=== PATIENT | male | born 1970 | race Caucasian/White ===

== ENCOUNTER 2024-06-10 13:31 | Inpatient (IN) ==
--- NOTE | 2024-06-10 13:53 | Emergency Department Note ---
Impression & Plan Supraventricular tachycardia, Chest pain, Elevated troponin level ED Provider Note NAME: AUREA HSU AGE: 53 SEX: M : 1970 ARRIVES VIA: Ambulance INFORMANT: Patient, ED PROVIDER(S): Ang Streeter MD CHIEF COMPLAINT: Chest tightness, palpitations MEDICAL DECISION MAKING: Patient presents due to concern for chest tightness. IV was established and blood work was obtained. Patient does have a white count of 14 but denies any infectious symptoms. Patient has a normal H&H and platelet count. The patient's kidney function is unremarkable. Patient was noted to have a troponin of 141. Patient does not have any acute ischemic changes to suggest a STEMI at this time. Patient still does have some mild chest discomfort. He did already see 4 baby aspirin prior to arrival. I did speak with the on-call hospitalist service. I do believe that the likely cause of the patient's elevated troponin is secondary to a prolonged course of the patient being in SVT. The patient states that he began having palpitations around 4 to 5 PM yesterday and likely did not have them resolved until ambulance transport this afternoon. If his rates were that high for that long of a time would be a reasonable cause for his symptoms; however, patient will be admitted to trend his enzymes and further evaluate his chest pain. I did speak with the on-call hospitalist service Carlie Kathleen PA-C and the patient was admitted by Dr. Gilbert. Discussion w/ other healthcare providers: Samri Kathleen PA-C and Dr. Gilbert Prior /Outside records reviewed: None Differential diagnosis: Cardiac ischemia, aortic dissection, pulmonary embolism, pneumothorax, pneumonia, pericarditis, myocarditis, GERD, cholecystitis, pancreatitis, musculoskeletal, as well as other pathologies were considered. Diagnostics, as interpreted by me: ECG: Normal sinus rhythm, rate 96, normal intervals, left axis deviation no ST elevations. Incomplete right bundle branch block pattern. Cardiac monitoring: An order was placed for continuous cardiac monitoring. The monitor shows a rate of 95 with sinus rhythm. Patient was placed on pulse oximetry Medical decision rules: None Imaging studies: I informally interpreted the patient's chest x-ray does not show obvious pneumonia or pneumothorax with formal report to follow. HPI: Patient presents due to concern for chest tightness and palpitations. Patient was seen at [facility] and was noted to be SVT was taken from there to here via ambulance and did receive adenosine. Patient states that he does feel improved. He was given aspirin at the urgent care but no nitro. No prior history of heart or lung disease. The patient states that his chest discomfort does feel improved after receiving the adenosine medication. Patient still has some of the chest tightness but noticed that it seemed to be worse last evening and this morning with associated palpitations. He did have some lightheadedness and dizziness after dinner at which time he did take his blood pressure medication and noticed that his heart rate to be elevated. Patient denies any supplements or stimulants. No caffeine use. Patient denies any alcohol tobacco or drug use. No known heart or lung history. Patient is a non-smoker. No leg swelling or calf pain no history of DVT or PE. No recent surgeries procedures or hospitalizations and no recent prolonged car plane travel. Patient denies any cough. Patient also did receive IV fluids. Patient may have received total of 700 cc prior to arrival. Patient denies any exertional chest pain nausea vomiting or diaphoresis. PAST MEDICAL HISTORY: See Below PAST SURGICAL HISTORY: See Below SOCIAL HISTORY: See Below HOME MEDICATIONS: See Below ALLERGIES: See Below VITALS: See Below PHYSICAL EXAMINATION: GENERAL: NAD, non-toxic. EYE EXAM: Normal conjunctiva. PERRL, no anisocoria and EOM's grossly intact w/o pain. OROPHARYNX: Moist mucus membranes, grossly normal dentition. NECK: Trachea midline, no stridor. Supple, no nuchal rigidity, no adenopathy, non-tender. No signs of meningismus. FROM of the neck with good chin to chest and neck extension. LUNGS: Clear to auscultation. Normal chest wall mechanics. HEART: NSR, no MRG. ABDOMEN: Abdomen soft, non-tender, no masses, no rebound or guarding. BACK: No CVA TTP. SKIN: No rashes and no bruising. UPPER EXTREMITIES: Upper extremities are grossly normal. LOWER EXTREMITIES: Grossly normal, no edema. NEURO EXAM: A&O x3, cranial nerves II-XII grossly intact, normal speech, moves all 4 extremities. Past Med/Surg History Problem List (Updated 06/10/24 @ 17:21 by Ang Streeter MD) Elevated troponin level (Acute) Chest pain (Acute) Supraventricular tachycardia (Acute) Medical History ZARIA (generalized anxiety disorder) History of sinus tachycardia Metabolic syndrome Prediabetes HTN (hypertension) Social History Smoking Status: Never smoker Preferred Language: Japanese Feels Safe at Home: Yes Home Meds Home Medications Medication Instructions Recorded Confirmed amoxicillin 875 mg-potassium 1 tab PO BID 06/10/24 06/10/24 clavulanate 125 mg tablet fluticasone propionate 50 1 spray intranasal DAILY 06/10/24 06/10/24 mcg/actuation nasal spray,suspension losartan 100 mg tablet 100 mg PO QAM 06/10/24 06/10/24 prednisone 20 mg tablet 20 mg PO DAILY 06/10/24 06/10/24 Results & Data (ED) Vital Signs Vital Signs - 24 hr 06/10/24 13:39 06/10/24 13:53 06/10/24 13:53 Temperature 36.8 C Temperature Source Oral Pulse Rate 96 H 98 H Pulse Rate [Apical] 93 H Pulse Rhythm Regular Pulse Rhythm [Apical] Regular Pulse Strength [Apical] Normal Respiratory Rate 24 16 16 Respiratory Effort / Characteristics Non-Labored Spontaneous Respiratory Depth Normal Blood Pressure 127/78 Blood Pressure [Right Arm] 115/72 Blood Pressure Mean 94 Blood Pressure Mean [Right Arm] 86 Blood Pressure Position [Right Arm] Semi-fowlers Pulse Oximetry 100 99 99 Oxygen Delivery Method Room Air Room Air Room Air Sepsis Recent Fever Within 48 Hours No Sepsis New/Unexplained Change in Mental Status No Sepsis Action Taken by Nursing No Action Required 06/10/24 14:26 06/10/24 15:06 Temperature Temperature Source Pulse Rate 98 H 88 Pulse Rate [Apical] Pulse Rhythm Pulse Rhythm [Apical] Pulse Strength [Apical] Respiratory Rate 12 Respiratory Effort / Characteristics Respiratory Depth Blood Pressure 99/80 L Blood Pressure [Right Arm] Blood Pressure Mean 86 Blood Pressure Mean [Right Arm] Blood Pressure Position [Right Arm] Pulse Oximetry 100 Oxygen Delivery Method Sepsis Recent Fever Within 48 Hours Sepsis New/Unexplained Change in Mental Status Sepsis Action Taken by Intermediate Medications Current Medication List: was personally reviewed by me Laboratory Data Attestation: I reviewed the patient's lab results. 06/10/24 13:40 06/10/24 13:40 Lab Results 07/25/24 07/25/24 07/25/24 Range/Units 13:40 14:00 16:04 WBC 14.09 H (4.8-10.8) K/ul RBC 4.90 (4.70-6.10) M/uL Hgb 14.8 (14.0-18.0) g/dl Hct 43.6 (42.0-52.0) % MCV 89.0 (80.0-100.0) fL MCH 30.2 (25.0-34.0) pg MCHC 33.9 (32.0-36.0) g/dL RDW Std Deviation 41.3 (36.4-46.3) fL RDW Coeff of Ebrtha 12.7 (11.5-14.5) % Plt Count 304 (130-400) K/uL MPV 9.7 (9.4-12.4) fL Immature Gran % (Auto) 0.6 % Neut % (Auto) 68.4 % Lymph % (Auto) 20.5 % [place] % (Auto) 8.2 % Eos % (Auto) 1.9 % Baso % (Auto) 0.4 % Neut # (Auto) 9.64 H (1.40-6.50) K/uL Lymph # (Auto) 2.89 (1.20-3.40) K/uL [place] # (Auto) 1.16 H (0.11-0.59) K/uL Eos # (Auto) 0.27 (0.00-0.50) K/uL Baso # (Auto) 0.05 (0.00-0.20) K/uL Immature Gran # (Auto) 0.08 (0.01-0.20) K/uL PT 10.6 (9.0-12.0) Seconds INR 1.0 (0.9-1.1) APTT 24 (21-31) Seconds PTT Ratio 0.9 Sodium 139 (136-145) mmol/L Potassium 3.8 (3.5-5.1) mmol/L Chloride 106 (98-107) mmol/L Carbon Dioxide 26 (21-32) mmol/L Anion Gap 7 (3-11) BUN 27 H (6-23) mg/dl Creatinine 1.18 (0.6-1.4) mg/dl Est Cr Clr Drug Dosing 92.7 ml/min Est GFR ( Amer) 81.7 ml/min Est GFR (Non-Af Amer) 70.5 ml/min BUN/Creatinine Ratio 22.9 H (10-20) Glucose 107 H (70-99(Fasting)) mg/dl Calcium 9.1 (8.6-10.3) mg/dl Magnesium 2.0 (1.7-2.4) mg/dl Total Bilirubin 1.0 (0.2-1.0) mg/dl AST 29 (13-39) U/L ALT 55 H (7-52) U/L Alkaline Phosphatase 75 (34-104) U/L Troponin I High Sens 141.9 H* 152.2 H* (0-20) pg/ml Total Protein 6.9 (6.0-8.3) gm/dl Albumin 4.1 (3.4-5.0) gm/dl Globulin 2.8 (2.5-4.0) gm/dl Albumin/Globulin Ratio 1.5 (0.9-2) Lipase 33 (11-82) U/L TSH 2.749 (0.300-4.500) uIu/ml SARS-CoV-2, RNA, NAAT NEGATIVE (NEGATIVE) Imaging Data Radiologist's Impression: Chest X-Ray 06/10/24 13:48 XR chest 1V portable CLINICAL HISTORY: Chest pain, nonspecific TECHNIQUE: Single frontal radiograph of the chest was obtained. Comparison: None available at the time of this dictation. FINDINGS: Exam is limited by underpenetration. The cardiomediastinal silhouette is normal. The lungs are clear. No evidence of pleural effusion or pneumothorax. IMPRESSION: No acute chest disease. ACT 112: Negative or not required by law. Electronically signed by: Ty Curran M.D. 06/10/2024 2:10 PM Discharge Plan Visit Data Chief Complaint: Chest Pain Stated Complaint: TACHYCARDIA, SOB, CHEST PAIN ED Provider: Ang Streeter Discharge Problem: Supraventricular tachycardia, Chest pain, Elevated troponin level Forms Stand Alone Forms: My [facility] Prescriptions Prescriptions: No Action prednisone 20 mg tablet 20 mg PO DAILY Rx Instructions: Two pills daily with food for 5 days, then 1 daily with food. Patient was on his last dose today. losartan 100 mg tablet 100 mg PO QAM fluticasone propionate 50 mcg/actuation spray,suspension 1 spray INTRANASAL DAILY amoxicillin-pot clavulanate 875-125 mg tablet 1 tab PO BID Rx Instructions: Patient was on his last day (06/10). Referrals Referrals: PCP,NO [Physician] - Discharge Problem: Chest pain Qualifiers: Chest pain type: unspecified Qualified Code(s): R07.9 - Chest pain, unspecified
[2024-06-10 14:10] LABS: Basophils # (auto) 0.05 K/uL (0.00-0.20); Basophils % (auto) 0.4 %; Eosinophils # (auto) 0.27 K/uL (0.00-0.50); Eosinophils % (auto) 1.9 %; Hematocrit (blood only) 43.6 % (42.0-52.0); Hemoglobin 14.8 g/dl (14.0-18.0); Immature Granulocytes # (auto) 0.08 K/uL (0.01-0.20); Immature Granulocytes % (auto) 0.6 %; Lymphocytes # (auto) 2.89 K/uL (1.20-3.40); Lymphocytes % (auto) 20.5 %; Mean Corpuscular Hemoglobin 30.2 pg (25.0-34.0); Mean Corpuscular Hgb Conc 33.9 g/dL (32.0-36.0); Mean Platelet Volume 9.7 fL (9.4-12.4); Monocytes # (auto) 1.16 K/uL (0.11-0.59); Monocytes % (auto) 8.2 %; Neutrophils # (auto) 9.64 K/uL (1.40-6.50); Neutrophils % (auto) 68.4 %; Platelet Count 304 K/uL (130-400); RDW Coefficient of Variation 12.7 % (11.5-14.5); RDW Standard Deviation 41.3 fL (36.4-46.3); White Blood Count 14.09 K/ul (4.8-10.8)
--- NOTE | 2024-06-10 14:12 | XRay Report ---
XR chest 1V portable CLINICAL HISTORY: Chest pain, nonspecific TECHNIQUE: Single frontal radiograph of the chest was obtained. Comparison: None available at the time of this dictation. FINDINGS: Exam is limited by underpenetration. The cardiomediastinal silhouette is normal. The lungs are clear. No evidence of pleural effusion or pneumothorax. IMPRESSION: No acute chest disease. ACT 112: Negative or not required by law. Electronically signed by: Ty Curran M.D. 06/10/2024 2:10 PM
[2024-06-10 14:35] LABS: Partial Thromboplastin Ratio 0.9; Partial Thromboplastin Time 24 Seconds (21-31); Prothrombin Time 10.6 Seconds (9.0-12.0)
[2024-06-10 14:39] LABS: Albumin Globulin Ratio 1.5 (0.9-2); Albumin Level 4.1 gm/dl (3.4-5.0); BUN Creatinine Ratio 22.9 (10-20); Calcium 9.1 mg/dl (8.6-10.3); Creatinine Clr Calc Pharmacy 92.7 ml/min; Est GFR (African American) 81.7 ml/min; Est GFR (Non-African American) 70.5 ml/min; Globulin 2.8 gm/dl (2.5-4.0); Potassium 3.8 mmol/L (3.5-5.1); Total Protein 6.9 gm/dl (6.0-8.3)
[2024-06-10 14:44] LABS: Troponin I High Sensitivity 141.9 pg/ml (0-20)
[2024-06-10 14:50] LABS: Thyroid Stimulating Hormone 2.749 uIu/ml (0.300-4.500)
--- NOTE | 2024-06-10 15:48 | History & Physical Report ---
Date of Service June 10, 2024 History of Present Illness Chief Complaint: CP, palpitations Primary Care Provider: Katelyn Yan MD This is a 53-year-old male with PMH of metabolic syndrome, prediabetes, hypertension, sinus tachycardia, history of generalized anxiety disorder and other medical problems listed below who presents with chest pain and palpitations. Was seen at [facility] earlier today and noted to be in SVT. Was brought by ambulance to our ED and adenosine was given en route. Was given aspirin at the urgent care as well. Denies any history of known heart or lung disease. Does have history of sinus tachycardia per chart review. Past Med/Surg History Problem List Social History Smoking Status: Never smoker Preferred Language: Estonian Feels Safe at Home: Yes Results & Data Results & Data Vital Signs (Past 12 Hours) Vital Signs Temp Pulse Pulse Resp BP BP Pulse Ox 06/10/24 15:06 88 12 99/80 L 100 06/10/24 14:26 98 H 06/10/24 13:53 98 H 16 99 06/10/24 13:53 93 H 16 115/72 99 06/10/24 13:39 36.8 C 96 H 24 127/78 100 O2 Del Method 06/10/24 15:06 06/10/24 14:26 06/10/24 13:53 Room Air 06/10/24 13:53 Room Air 06/10/24 13:39 Room Air Supervising Physician Co-Signing Physician Notes I have seen and discussed the case with the collaborating advanced practitioner. I agree with the above H&P. I have reviewed and confirmed the patients medical history, the findings on physical examination, and the patients diagnosis and treatment plan with Hever LIEBERMAN and agree with the information documented. 53-year-old male with PMH of metabolic syndrome, prediabetes, hypertension, sinus tachycardia, history of generalized anxiety disorder and other medical problems listed below who presents with chest pain and palpitations Acute non-recurrent frontal sinusitis (Primary) - Amoxicillin-Pot Clavulanate 875-125 MG Oral Tablet (Augmentin); Take 1 Tablet by mouth in the morning and 1 Tablet before bedtime. Do all this for 10 days. - predniSONE 20 MG Oral Tablet (Deltasone); two pills daily with food for 5 days, then one daily with food HTN, goal below 140/90 - Losartan Potassium 100 MG Oral Tablet (Cozaar); Take 1 Tablet by mouth in the morning. Metabolic syndrome - HEMOGLOBIN A1C; Future; Expected date: 05/31/2024 I spent a total of minutes coordinating, documenting, and providing care for this patient excluding time spent in the performance of separately billed services. All of the aforementioned completed outside of collaborating with the assigned advanced practitioner for a full treatment plan. I have reviewed the advanced practitioner's documentation, and I agree with, and take responsibility for the plan of care
--- NOTE | 2024-06-10 15:59 | Electrocardiogram Report ---
Test Reason : Blood Pressure : / mmHG Vent. Rate : 096 BPM Atrial Rate : 096 BPM P-R Int : 174 ms QRS Dur : 094 ms QT Int : 342 ms P-R-T Axes : 058 258 030 degrees QTc Int : 432 ms Normal sinus rhythm Right superior axis deviation Incomplete right bundle branch block Right ventricular hypertrophy Abnormal ECG No previous ECGs available Confirmed by Michael Ma ([id number]) on 06/10/2024 3:59:31 PM Referred By: Confirmed By:Michael Ma
--- NOTE | 2024-06-10 16:03 | History & Physical Report ---
Date of Service June 10, 2024 Assessment & Plan (1) Chest pain: (2) Elevated troponin level: (3) Supraventricular tachycardia: Plan Austin Patel is a 53y/o M with PMHx of metabolic syndrome, prediabetes, hypertension, sinus tachycardia, history of generalized anxiety disorder and other medical problems listed below who presents with chest pain and palpitations. Patient was seen at [facility] and was noted to be SVT. He was taken from there to here via ambulance and received adenosine en route. He was given aspirin at the urgent care but no nitroglycerin. Patient also received approximately 700mL of NSS en route to the ED. Chest Pain, Palpitations Elevated Troponin Level Supraventricular Tachycardia Administered adenosine en route to ED. Presenting EKG w/ no acute ischemic changes. Initial trop 141.9 upon presentation; Repeat trop 152.2 @ 16:04 - Continue to trend. Echo ordered and pending - follow results. HR still in upper 90s-100s at time of admission; Initiating po metoprolol tartrate 12.5 Q6H. EKG w/ chest pain PRN, daily EKG in AM x 2. Continuous cardiac + pulse ox monitoring. Cardiology consulted, appreciate their input/recs. UA pending - follow results. CBC, CMP and fasting lipid panel in AM - follow results. HTN Pt on losartan 100mg daily [employer]; Holding losartan for now 2/2 presenting hypotension. Seasonal Allergies Pt taking Augmentin and prednisone [employer] for acute sinusitis; Stopping both medications on admission 2/2 improved symptoms. No overt evidence of infection on physical exam. Daily Alcohol Use Tobacco Use Disorder Pt reports drinking ~2 beers after dinner every evening; He also uses chewing tobacco daily. Alcohol w/d at-risk protocol in place; Denies need for nicotine patch at this time. JAXON on CPAP: Ordered, can continue using CPAP HS. Prediabetes: Hgb A1c in AM - follow results. DVT Prophylaxis: SQ Lovenox Code Status: FULL CODE PCP: Katelyn Yan MD Disposition: Admit to Med/Tele Patient seen in collaboration with Dr. Gilbert. Please see addendum. I spent a total of 50 minutes coordinating, documenting, and providing care for this patient excluding time spent in the performance of separately billed services. This included personally reviewing all current laboratories and imaging studies, medical reconciliation, outpatient chart review and discussion with specialists. This chart was completed in part utilizing Speech Voice Recognition Software. Grammatical errors, random word insertions, pronoun errors, and incomplete sentences are an occasional consequence of this system due to software limitations, ambient noise, and hardware issues. Any formal questions or concerns about the content, text, or information contained within the body of this dictation should be directly addressed to the provider for clarification. History of Present Illness Chief Complaint: Chest Pain, Palpitations Primary Care Provider: Katelyn Yan MD Austin Patel is a 53y/o M with PMHx of metabolic syndrome, prediabetes, hypertension, sinus tachycardia, history of generalized anxiety disorder and other medical problems listed below who presents with chest pain and palpitations. Was seen at [facility] earlier today and noted to be in SVT. Was brought by ambulance to our ED and adenosine was given en route. Was given aspirin at the urgent care as well, but no nitro. Patient states that his chest discomfort does feel improved. Patient started with chest tightness, palpitations and lightheadedness/dizziness yesterday around dinner time. He reports that he took his BP at home and noted that his HR was elevated. Denies any history of known heart or lung disease. Does have history of sinus tachycardia per chart review. He has been taking Augmentin and prednisone over the past week or so for an acute sinus infection. No family history of heart disease. He did not take his losartan this morning - he usually takes this medication in the afternoon. Patient also received 700mL of NSS en route. He does not smoke, but does endorse using chewing tobacco. No recreational drug use. He drinks approximately 2 beers after dinner every evening. He denies any SOB, abdominal pain, leg swelling or cough. Home Medications Medication Instructions Recorded Confirmed Type amoxicillin 875 mg-potassium 1 tab PO BID 06/10/24 06/10/24 History clavulanate 125 mg tablet fluticasone propionate 50 1 spray intranasal DAILY 06/10/24 06/10/24 History mcg/actuation nasal spray,suspension losartan 100 mg tablet 100 mg PO QAM 06/10/24 06/10/24 History prednisone 20 mg tablet 20 mg PO DAILY 06/10/24 06/10/24 History Past Med/Surg History Problem List (Updated 06/10/24 @ 17:21 by Ang Streeter MD) Elevated troponin level (Acute) Chest pain (Acute) Supraventricular tachycardia (Acute) Medical History ZARIA (generalized anxiety disorder) History of sinus tachycardia Metabolic syndrome Prediabetes HTN (hypertension) Social History Smoking Status: Never smoker Preferred Language: Slovenian Feels Safe at Home: Yes Review of Systems Review of Systems: At least ten systems reviewed and negative, except as noted in the HPI. Physical Exam Physical Exam: Please refer to Dr. Barfield's addendum for physical examination findings. Results & Data Results & Data Vital Signs (Past 12 Hours) Vital Signs Temp Pulse Pulse Resp BP BP Pulse Ox 06/10/24 15:06 88 12 99/80 L 100 06/10/24 14:26 98 H 06/10/24 13:53 98 H 16 99 06/10/24 13:53 93 H 16 115/72 99 06/10/24 13:39 36.8 C 96 H 24 127/78 100 O2 Del Method 06/10/24 15:06 06/10/24 14:26 06/10/24 13:53 Room Air 06/10/24 13:53 Room Air 06/10/24 13:39 Room Air Laboratory Results Short CBC 06/10/24 Range/Units 13:40 WBC 14.09 H (4.8-10.8) K/ul Hgb 14.8 (14.0-18.0) g/dl Hct 43.6 (42.0-52.0) % Plt Count 304 (130-400) K/uL BMP 06/10/24 13:40 Sodium 139 Potassium 3.8 Chloride 106 Carbon Dioxide 26 BUN 27 H Creatinine 1.18 Glucose 107 H Calcium 9.1 Liver Function 06/10/24 Range/Units 13:40 Total Bilirubin 1.0 (0.2-1.0) mg/dl AST 29 (13-39) U/L ALT 55 H (7-52) U/L Alkaline Phosphatase 75 (34-104) U/L Albumin 4.1 (3.4-5.0) gm/dl Diagnostic Findings Chest X-Ray 06/10/24 13:48 XR chest 1V portable CLINICAL HISTORY: Chest pain, nonspecific TECHNIQUE: Single frontal radiograph of the chest was obtained. Comparison: None available at the time of this dictation. FINDINGS: Exam is limited by underpenetration. The cardiomediastinal silhouette is normal. The lungs are clear. No evidence of pleural effusion or pneumothorax. IMPRESSION: No acute chest disease. ACT 112: Negative or not required by law. Electronically signed by: Ty Curran M.D. 06/10/2024 2:10 PM Code Status & VTE Plan Code Status FULL CODE Supervising Physician Co-Signing Physician Notes I have seen and discussed the case with the collaborating advanced practitioner. I agree with the above H&P. I have reviewed and confirmed the patients medical history, the findings on physical examination, and the patients diagnosis and treatment plan with Hever LIEBERMAN and agree with the information documented. 53-year-old male with PMH of metabolic syndrome, prediabetes, hypertension, sinus tachycardia, history of generalized anxiety disorder and other medical problems listed below who presents with chest pain and palpitations. Patient reports history of intermittent palpitations, but notes that after taking a course of prednisone and augmentin for a sinusitis, he felt the palpitations set in worse finally bringing him to urgent care. Patient reports low blood pressures and elevated heart rates 190s. Patient s/p adenosine in route GENERAL APPEARANCE: AxOx4, generally well-appearing F no acute distress. HEENT: NC, AT. MMM. EOMI, clear conjunctiva, oropharynx clear. NECK: Supple without lymphadenopathy. No stiffness or restricted ROM. HEART: tachycardic and regular LUNGS: CTAB, moving air well. No crackles or wheezes are heard. ABDOMEN: Soft, nontender, nondistended with good bowel sounds heard. BACK: No CVAT, no obvious deformity. EXTREMITIES: Without cyanosis, clubbing or edema. NEUROLOGICAL: Grossly nonfocal. Alert and oriented, moving all 4 extremities. CN not formally tested but appear grossly intact. Observed to ambulate with normal gait. Skin: Warm and dry without any rash. #SVT s/p adenosine #Sinus tachycardia TSH wnl, UA ordered rates in 90-100s, starts metoprolol 12.5mg q6h monitor on tele Cards consult ECHO lipid panel and a1c #Allergic rhinitis start flonase and claritin rest of plan as above I spent a total of 35 minutes coordinating, documenting, and providing care for this patient excluding time spent in the performance of separately billed services. All of the aforementioned completed outside of collaborating with the assigned advanced practitioner for a full treatment plan. I have reviewed the advanced practitioner's documentation, and I agree with, and take responsibility for the plan of care (1) Chest pain Chest pain type: unspecified Qualified Code(s): R07.9 - Chest pain, unspecified
[2024-06-10] MEDS: Patient's ALLERGY Info needs ENTERED STA (17:57)
[2024-06-10] MEDS ORDERED: ONDANSETRON INJ 2 MG/ML 2 ML VIAL IV PRN (18:57)
[2024-06-10] MEDS ORDERED: ACETAMINOPHEN 325 MG TAB PO PRN (18:57)
[2024-06-10] MEDS ORDERED: POLYETHYLENE (MIRALAX) 17 GM PACK PO PRN (18:57)
[2024-06-10] MEDS ORDERED: LORazepam 1 MG in SYRINGE 0.5 ML IV PRN (18:57)
[2024-06-10] MEDS: METOPROLOL TARTRATE 1 MG/ML VIAL IV STA (19:29)
[2024-06-10] MEDS: METOPROLOL TARTRATE 25 MG TAB PO SCH (20:46)
[2024-06-10] MEDS: ENOXAPARIN INJ 40 MG/0.4 ML SYR SQ SCH (20:47)
[2024-06-10] MEDS: NICOTINE 21 MG/24 HR TDSY TD SCH (21:36)
[2024-06-10 21:51] LABS: Appearance Urine Clear (Clear); Bilirubin Urine Negative (Negative); Blood Urine Negative (Negative); Color Urine Yellow; Glucose Urine UA 1+ (Negative); Ketones Urine Negative (Negative); Leukocyte Esterase Urine Negative (Negative); Nitrite Urine Negative (Negative); Protein Urine Negative (Negative); Specific Gravity Urine 1.011 (1.000-1.030); Urobilinogen Urine Negative (Negative)
--- OUTSIDE RECORDS SUMMARY | 2024-06-11 00:13 | External Medical Summary | Summary of Care ---
Author Name Unknown Organization [facility] Address [address] [facility] [place] [address] Phone [phone] Care Team Providers Care Shop Firer/Fireman Name Role Phone Unavailable Primary Care Provider Unavailabl e Reason for Visit * Reason Comments eRx-Medication Refill Encounter Details Date Type Department Care Team (Late st Contact Info) Description 04/13/2024 Refill Family Medicine [address] [place] [phone] Sophie Hawknis PA-C [address] [place] [address] [place] [address] HTN, goal below 140/90 Allergies No known active allergiesdocumented as of this encounter (statuses as of 06/02/2024) Medications Medication Sig Dispensed Refills Start Date End Date Status Aspirin EC 81 MG Oral Tablet Delayed Release Take by mouth 1 Tablet in the morning. 02/04/2022 Active Fluticasone Propionate 50 MCG/ACT Nasal Suspension (Flonase)Indica tions:Dysfuncti on of both eustachian tubes Administer into each nostril 2 Sprays in the morning. 16 g 4 01/21/2022 4 Discontinued(Med ication List Clean Up) Losartan Potassium 100 MG Oral Tablet (Cozaar)Indicat ions:HTN, goal below 140/90 Take 1 Tablet by mouth in the morning. 30 Tablet 5 11/06/2023 4 Discontinued Losartan Potassium 100 MG Oral Tablet (Cozaar)Indicat ions:HTN, goal below 140/90 Take 1 Tablet by mouth in the morning. 30 Tablet 04/15/2024 4 Discontinued(Ref ill) documented as of this encounter (statuses as of 06/02/2024) Active Problems Problem Noted Date Diagnosed Date Prediabetes 05/24/2024 Overview: Per Prediabetes protocol Metabolic syndrome 05/19/2024 Overview: 6.0/126 HTN, goal below 140/90 04/23/2022 Sinus tachycardia 04/23/2022 ADVANCE DIRECTIVE INFORMATION 02/20/2006 Overview: No, Advance Directive brochure offered , patient declined. GENERALIZED ANXIETY DIS 09/08/2003 documented as of this encounter (statuses as of 06/02/2024) Resolved Problems Problem Noted Date Diagnosed Date Resolved Date BENIGN THALIA SKIN EAR 10/12/2003 02/08/20 14 documented as of this encounter (statuses as of 06/02/2024) Immunizations Name Administration Dates Next Due Pneumococcal Polysaccharide PPV23 (Pneumovax) 10/17/2012 Seasonal Influenza, Quadriva lent, No Preserve, IM 10/17/2016 Seasonal Influenza, Split, I IV3, With Preserve, Inj 08/12/2014,11/01/2013,10/17/2012 TDAP, Age 7 and older, IM (Adacel) 06/09/2019, documented as of this encounter Social History Tobacco Use Types Packs/Day Years Used Date Smoking Tobacco: Former Cigarettes Smokeless Tobacco: Current Snuff Comments:quit smoking, chews snuff Alcohol Use Standard Drinks/Week Comments Yes 0 (1 standard drink = 0.6 oz pur e alcohol) on weekends Sex and Gender Information Value Date Recorded Sex Assigned at Not on file Gender Identity Not on file Sexual Orientation Not on file Job Start Date Occupation Industry Not on file Not on file Not on file documented as of this encounter Miscellaneous Notes * Telephone Encounter - Julian Estrada OSA - 06/02/2024 11:03 AM EDT Pt was seen by Dr. Pratt 05/31/24 * Telephone Encounter - Israel Stern MD - 04/15/2024 12:07 PM EDTSigned Prescriptions: Disp Refills Losartan Potassium 100 MG Oral Tablet (Coz*30 Tab*0 Sig: Take 1 Tablet by mouth in the morning. Authorizing Provider: ISRAEL STERN * Telephone Encounter - Israel Stern MD - 04/15/2024 12:06 PM EDT Rx signed with no refills. Needs Labs and appt. * Telephone Encounter - Malka Carias RP - 04/15/2024 10:27 AM EDTPending Prescriptions: Disp Refills Losartan Potassium 100 MG Oral Tablet [Pha*30 Tab*5 Sig: Take 1 Tablet by mouth in the morning. * Telephone Encounter - Malka Carias RP - 04/15/2024 10:27 AM EDT Patient has no PCP under whom to authorize refills. Please approve if appropriate. Thanks, Malka Carias Clinical Pharmacist [facility] ([facility]) [phone] 04/15/2024, 10:27 AM * Telephone Encounter - Malka Carias RPh - 04/15/2024 10:27 AM EDT Did you pend patient's preferred pharmacy and medication before forwarding?yes Pharmacy: [facility] Pending Prescriptions: Disp Refills Losartan Potassium 100 MG Oral Tablet (Co*30 Tab*5 Sig: Take 1 Tablet by mouth in the morning. Last Visit: 10/23/2023 (in office), Visit date not found (telemedicine) Next Visit: Visit date not found If no future appointments scheduled, and last appointment is greater than a year ago, please schedule patient for a follow-up appointment Last date the medication was ordered: 11/06/23 Is this request for a controlled substance?No Urine Drug Screen:No results found for this or any previous visit. Patient Phone Numbers Labs: Lab Results Component Value Date/Time CREAT 1.0 03/22/2022 12:44 PM POTASSIUM 4.7 03/22/2022 12:44 PM TSH 0.94 01/21/2022 12:36 PM TSH 1.73 10/12/2003 01:26 PM LDLCALC 96 01/21/2022 12:36 PM LDLCALC 93 01/11/2013 04:00 PM LDLDIRECT NOT APPLICABLE 01/11/2013 04:00 PM HGBA1C 5.5 01/28/2022 08:06 AM documented in this encounter Plan of Treatment Health Maintenance Due Date Last Done Comments Albumin/Creatinine Ratio 1989 Cologuard 2016 Colonoscopy 2016 Colorectal Cancer Screening 2016 Fecal Occult Blood Test 2016 Sigmoidoscopy 2016 Depression Screening 12/03/2017 12/03/2016 Zoster Vaccines (1 of 2) 2021 Influenza Vaccine (FLU shot) (#1) 2024 10/17/2016, 08/12/2014, 11/01/2013, Additional history exists GFR 05/17/2025 05/17/2024, 05/0 04/2022, 02/19/2022, Additional history exists HbA1c 05/19/2025 05/19/2024, 01/28/2022 Lipid Panel 01/21/2027 01/21/2022, 12/19, 10/12/2003 DTaP,Tdap,and Td Vaccines (3 - Td or Tdap) 06/09/2029 06/09/2019, 02/06/2009 Pneumococcal Vaccine: Pediatrics (0 to 5 Years) and At-Risk Patients (6 to 64 Years) Aged Out 10/17/2012 No longer eligible based on patient's age to complete this topic COVID-19 Vaccine Discontinued HIV Screening Discontinued HPV (Gardasil) Vaccine Aged Out No lo nger eligible based on patient's age to complete this topic Hepatitis B Vaccine Discontinued Hepatitis C Screening Discontinued MENINGOCOCCAL (MENACTRA/MENVEO) Aged Out No longer eligible based on patient's age to complete this topic documented as of this encounter Medical Devices Not on filedocumented as of this encounter Results * (ABNORMAL) BASIC METABOLIC PANEL (05/17/2024 11:49 AM EDT) BUN 11 6 - 20 mg/dL 05/18/2024 12:37 AM EDT [facility] Creatinine 1.0 0.6 - 1.2 mg/dL 05/18/2024 12:37 AM EDT [facility] Estimated Glomerular Filtration Rate >90 >=60 mL/min 05/18/2024 12:37 AM EDT [facility] Comment:eGFR is calculated b ased on the CKD-EPI 2020 equation Sodium 139 135 - 146 mmol/L 05/18/2024 12:37 AM EDT [facility] Potassium 4.7 3.5 - 5.1 mmol/L 05/18/2024 12:37 AM EDT [facility] Chloride 103 98 - 107 mmol/L 05/18/2024 12:37 AM EDT [facility] CO2 23 22 - 32 mmol/L 05/18/2024 12:37 AM EDT [facility] Anion Gap 13 7 - 15 mmol/L 05/18/2024 12:37 AM EDT [facility] Glucose 198(H) 70 - 120 mg/dL 05/18/2024 12:37 AM EDT [facility] Calcium 9.5 8.4 - 10.2 mg/dL 05/18/2024 12:37 AM EDT [facility] Blood Venous blood specimen / Unknown Venipuncture / Unknown 05/17/2024 11:49 AM EDT 05/17/2024 11:49 AM EDT Israel Quinn MD LAB BLOOD ORDERABLES [facility] [address] [place] [address] documented in this encounter Visit Diagnoses Diagnosis HTN, goal below 140/90 Unspecified essential hypertension documented in this encounter
--- OUTSIDE RECORDS SUMMARY | 2024-06-11 00:14 | External Medical Summary | Summary of Care ---
Author Name Unknown Organization [facility] Address [address] [facility] [place] [address] Phone [phone] Care Team Providers Care Power Tool Repairer Name Role Phone Unavailable Primary Care Provider Unavailabl e Encounter Details Date Type Department Care Team (Late st Contact Info) Description 04/19/2024 Orders Only PATIENT PORTAL DO NOT DELETE THIS DEPT USED BY [place] [id number] Allergies No known active allergiesdocumented as of this encounter (statuses as of 04/19/2024) Medications Medication Sig Dispensed Refills Start Date End Date Status Fluticasone Propionate 50 MCG/ACT Nasal Suspension (Flonase)Indication s:Dysfunction of both eustachian tubes Administer into each nostril 2 Sprays in the morning. 16 g 4 01/21/2022 Active Aspirin EC 81 MG Oral Tablet Delayed Release Take by mouth 1 Tablet in the morning. 02/04/2022 Active Losartan Potassium 100 MG Oral Tablet (Cozaar)Indications :HTN, goal below 140/90 Take 1 Tablet by mouth in the morning. 30 Tablet 04/15/2024 Active documented as of this encounter (statuses as of 04/19/2024) Active Problems Problem Noted Date Diagnosed Date HTN, goal below 140/90 04/23/2022 Sinus tachycardia 04/23/2022 ADVANCE DIRECTIVE INFORMATION 02/20/2006 Overview: No, Advance Directive brochure offered , patient declined. GENERALIZED ANXIETY DIS 09/08/2003 documented as of this encounter (statuses as of 04/19/2024) Resolved Problems Problem Noted Date Diagnosed Date Resolved Date BENIGN THALIA SKIN EAR 10/12/2003 02/08/20 14 documented as of this encounter (statuses as of 04/19/2024) Immunizations Name Administration Dates Next Due Pneumococcal [...] on file documented as of this encounter Plan of Treatment Health Maintenance Due Date Last Done Comments HIV Screening 1986 Albumin/Creatinine Ratio 1989 Hepatitis C Screening 1989 Hepatitis B (1 of 3 - 19+ 3-dose series) 1990 Cologuard 2016 Colonoscopy 2016 Colorectal Cancer Screening 2016 Fecal Occult Blood Test 2016 Sigmoidoscopy 2016 Depression Screening 12/03/2017 12/03/2016 Zoster Vaccines (1 of 2) 2021 GFR 03/22/2023 03/22/2022, 04/0 03/2022, 01/21/2022 COVID-19 Vaccine ( season) 2023 Influenza Vaccine (FLU shot) (Season Ended) 2024 10/17/2016, 08/12/2014, 11/01/2013, Additional history exists Diabetes Screening 03/22/2025 03/22/2022, 0 02/19/2022, 01/28/2022, Additional history exists Lipid Panel 01/21/2027 01/21/2022, 02/03/2013, 10/12/2003 DTaP,Tdap,and Td Vaccines (3 - Td or Tdap) 06/09/2029 06/09/2019, 02/06/2009 Pneumococcal Vaccine: Pediatrics (0 to 5 Years) and At-Risk Patients (6 to 64 Years) Aged Out 10/17/2012 No longer eligible based on patient's age to complete this topic GARDASIL-HPV IMMUNIZATION SERIES Aged Out No longer eligible based on patient's age to complete this topic MENINGOCOCCAL (MENACTRA/MENVEO) Aged Out No longer eligible based on patient's age to complete this topic documented as of this encounter Medical Devices Not on filedocumented as of this encounter
--- OUTSIDE RECORDS SUMMARY | 2024-06-11 00:14 | External Medical Summary | Summary of Care ---
Author Name Unknown Organization [facility] Address [address] [facility] [facility] [address] Phone [phone] Care Team Providers Care Harbor Police Launch Commander Name Role Phone Unavailable Primary Care Provider Unavailabl e Reason for Visit * Reason Comments Acute Pt states that the r ight side of face and ear feel numb for the last 2 weeks. Pt reports he also a a full feeling in the right ear. Pt has been having a headache and dizzy spells while driving. Encounter Details Date Type Department Care Team (Late st Contact Info) Description 05/17/2024 2:00 PM EDT Office Visit Family Practice [facility] [address] [facility] [place] [address] Octaviano Hoff MD [address] [facility] [place] [address] Acute effusion of right ear*; TMJ dysfunction; Deviated nasal septum; Acute recurrent frontal sinusitis Allergies No known active allergiesdocumented as of this encounter (statuses as of 05/17/2024) Medications Medication Sig Dispensed Refills Start Date End Date Status Aspirin EC 81 MG Oral Tablet Delayed Release Take by mouth 1 Tablet in the morning. 02/04/2022 Active Losartan Potassium 100 MG Oral Tablet (Cozaar)Indicatio ns:HTN, goal below 140/90 Take 1 Tablet by mouth in the morning. 30 Tablet 04/15/2024 Active Amoxicillin-Pot Clavulanate 875-125 MG Oral Tablet (Augmentin) Take 1 Tablet by mouth in the morning and 1 Tablet before bedtime. Do all this for 7 days. 14 Tablet 05/17/2024 05/24/2024 Active dexAMETHasone 4 MG Oral Tablet (Decadron) Take 1 Tablet by mouth once for 1 dose. 1 Tablet 05/17/2024 05/17/2024 Active Fluticasone Propionate 50 MCG/ACT Nasal Suspension (Flonase)Indicati ons:Dysfunction of both eustachian tubes Administer into each nostril 2 Sprays in the morning. 16 g 4 01/21/2022 05/17/2024 Discontinue d(Medicatio n List Clean Up) documented as of this encounter (statuses as of 05/17/2024) Active Problems Problem Noted Date Diagnosed Date HTN, goal below 140/90 04/23/2022 Sinus tachycardia 04/23/2022 ADVANCE DIRECTIVE INFORMATION 02/20/2006 Overview: No, Advance Directive brochure offered , patient declined. GENERALIZED ANXIETY DIS 09/08/2003 documented as of this encounter (statuses as of 05/17/2024) Resolved Problems Problem Noted Date Diagnosed Date Resolved Date BENIGN THALIA SKIN EAR 10/12/2003 02/08/20 14 documented as of this encounter (statuses as of 05/17/2024) Immunizations Name Administration Dates Next Due Pneumococcal [...] on file documented as of this encounter Last Filed Vital Signs Vital Sign Reading Time Taken Comments Blood Pressure 146/82 05/17/2024 2:00 PM EDT Pulse 85 05/17/2024 2:00 PM EDT Temperature 36.9 C (98.5 F) 05/17/2024 2:00 PM ED T Respiratory Rate 16 05/17/2024 2:00 PM EDT Oxygen Saturation 97% 05/17/2024 2:00 PM EDT Inhaled Oxygen Concentration - - Weight 113.6 kg (250 lb 6.4 oz) 05/17/2024 2:00 PM EDT Height 175.3 cm (5' 9") 05/17/2024 2:00 PM EDT Body Mass Index 36.98 05/17/2024 2:00 PM EDT documented in this encounter Progress Notes * Octaviano Hoff MD - 05/17/2024 2:20 PM EDT Images from the original note were not included. History of Present Illness Austin Patel is a 53 year old male that presents for Acute (Pt states that the right side of faceand ear feel numb for the last 2 weeks. Pt reports he also a a full feeling in the right ear. Pt has been having a headache and dizzy spells while driving. ) + dizziness with turning head quickly. No loss of vision. Patient states that his right eye is weaker in terms of vision than the left but that is chronic. Physical Exam BP 146/82 (BP Site: Left Arm, BP Position: Sitting, BP Cuff Size: Large) | Pulse 85 | Temp 36.9 C(98.5 F) (Tympanic) | Resp 16 | Ht 1.753 m (5' 9") | Wt 113.6 kg (250 lb 6.4 oz) | SpO2 97% | BMI36.98 kg/m | BSA 2.35 m AAOx3 Normal affect NCAT/ PERRL + mild right upper lid blepharoptosis + deviated nasal septum to the right + healed ulcer right nare Right TM with effusion behind, whitening of TM Neck supple Throat clear RRR Lungs CTABL Abd soft +BS Ext warm and well perfused No gross neuro deficits Normal gait I have reviewed most recent labs None Assessment and Plan Acute effusion of right ear - new TMJ dysfunction - moderate on the right with clicking/crepitus Deviated nasal septum - to the right Acute recurrent frontal sinusitis - new, will treat, related to above Wrap-Up Work note given F/u prn Time: I spent a total of 10-19 minutes (exact time 15 mins) on the date of service in preparation, delivery, and documentation of the care provided to Austin Patel excluding any time spent in the performance of separately billed services. documented in this encounter Plan of Treatment Health Maintenance Due Date Last Done Comments Cologuard 2016 Colonoscopy 2016 Fecal Occult Blood Test 2016 Sigmoidoscopy 2016 Depression Screening 12/03/2017 12/03/2016 GFR 03/22/2023 03/22/2022, 04/0 03/2022, 01/21/2022 Albumin/Creatinine Ratio 05/18/2024 Pos tponed from 1989 (Other) Colorectal Cancer Screening 05/18/2024 Postponed from 2016 (Other) Zoster Vaccines (1 of 2) 05/18/2024 Pos tponed from 2021 (Other) Influenza Vaccine (FLU shot) (#1) 2024 10/17/2016, 08/12/2014, 11/01/2013, Additional history exists Diabetes Screening 03/22/2025 03/22/2022, 0 02/19/2022, 01/28/2022, Additional history exists Lipid Panel 01/21/2027 01/21/2022, /03/2013, 10/12/2003 DTaP,Tdap,and Td Vaccines (3 - Td or Tdap) 06/09/2029 06/09/2019, 02/06/2009 Pneumococcal Vaccine: Pediatrics (0 to 5 Years) and At-Risk Patients (6 to 64 Years) Aged Out 10/17/2012 No longer eligible based on patient's age to complete this topic COVID-19 Vaccine Discontinued GARDASIL-HPV IMMUNIZATION SERIES Aged Out No longer eligible based on patient's age to complete this topic HIV Screening Discontinued Hepatitis B Discontinued Hepatitis C Screening Discontinued MENINGOCOCCAL (MENACTRA/MENVEO) Aged Out No longer eligible based on patient's age to complete this topic documented as of this encounter Medical Devices Not on filedocumented as of this encounter Visit Diagnoses Diagnosis Acute effusion of right ear- Primary TMJ dysfunction Temporomandibular joint disorders, unspecified Deviated nasal septum Acute recurrent frontal sinusitis Acute frontal sinusitis documented in this encounter
--- OUTSIDE RECORDS SUMMARY | 2024-06-11 00:14 | External Medical Summary | Summary of Care ---
Author Name Unknown Organization [facility] Address [address] [facility] [address] Phone [phone] Care Team Providers Care Deflash And Wash Operator Name Role Phone Unavailable Primary Care Provider Unavailabl e Reason for Visit * Reason Comments Outpatient Testing Encounter Details Date Type Department Care Team (Late st Contact Info) Description 05/19/2024 3:30 PM EDT Laboratory Laboratory [address] [place] [phone] [facility] [address] [place] [address] Hyperglycemia Allergies No known active allergiesdocumented as of this encounter (statuses as of 05/19/2024) Medications Medication Sig Dispensed Refills Start Date End Date Status Aspirin EC 81 MG Oral Tablet Delayed Release Take by mouth 1 Tablet in the morning. 02/04/2022 Active Losartan Potassium 100 MG Oral Tablet (Cozaar)Indications: HTN, goal below 140/90 Take 1 Tablet by mouth in the morning. 30 Tablet 04/15/2024 Active Amoxicillin-Pot Clavulanate 875-125 MG Oral Tablet (Augmentin) Take 1 Tablet by mouth in the morning and 1 Tablet before bedtime. Do all this for 7 days. 14 Tablet 05/17/2024 05/24/2024 Active documented as of this encounter (statuses as of 05/19/2024) Active Problems Problem Noted Date Diagnosed Date HTN, goal below 140/90 04/23/2022 Sinus tachycardia 04/23/2022 ADVANCE DIRECTIVE INFORMATION 02/20/2006 Overview: No, Advance Directive brochure offered , patient declined. GENERALIZED ANXIETY DIS 09/08/2003 documented as of this encounter (statuses as of 05/19/2024) Resolved Problems Problem Noted Date Diagnosed Date Resolved Date BENIGN THALIA SKIN EAR 10/12/2003 02/08/20 14 documented as of this encounter (statuses as of 05/19/2024) Immunizations Name Administration Dates Next Due Pneumococcal [...] as of this encounter Plan of Treatment Pending Results Name Type Priority Associated Diagnoses Date /Time HEMOGLOBIN A1C Lab Routine Hyperglycemia 05/19/2024 3:21 PM EDT Health Maintenance Due Date Last Done Comments Albumin/Creatinine Ratio 1989 Cologuard 2016 Colonoscopy 2016 Colorectal Cancer Screening 2016 Fecal Occult Blood Test 2016 Sigmoidoscopy 2016 Depression Screening 12/03/2017 12/03/2016 Zoster Vaccines (1 of 2) 2021 Influenza Vaccine (FLU shot) (#1) 2024 10/17/2016, 08/12/2014, 11/01/2013, Additional history exists GFR 05/17/2025 05/17/2024, 05/0 04/2022, 02/19/2022, Additional history exists Lipid Panel 01/21/2027 01/21/2022, 02/2 03/2013, 10/12/2003 Diabetes Screening 05/17/2027 05/17/2024, 0 03/22/2022, 02/19/2022, Additional history exists DTaP,Tdap,and Td Vaccines (3 - Td or [...] as of this encounter Visit Diagnoses Diagnosis Hyperglycemia Other abnormal glucose documented in this encounter
--- OUTSIDE RECORDS SUMMARY | 2024-06-11 00:14 | External Medical Summary | Summary of Care ---
Author Name Unknown Organization [facility] Address [address] [facility] [place] [address] Phone [phone] Care Team Providers Care Wrist Liner Name Role Phone Unavailable Primary Care Provider Unavailabl e Reason for Visit * Reason Comments Sinus Problem Encounter Details Date Type Department Care Team (Late st Contact Info) Description 05/31/2024 4:00 PM EDT Office Visit Family Medicine [address] [phone] Mo Pratt MD [address] [place] [address] [place] [address] Acute non-recurrent frontal sinusitis*; HTN, goal below 140/90; Metabolic syndrome Allergies No known active allergiesdocumented as of this encounter (statuses as of 05/31/2024) Medications Medication Sig Dispensed Refills Start Date End Date Status Aspirin EC 81 MG Oral Tablet Delayed Release Take by mouth 1 Tablet in the morning. 02/04/2022 Active Losartan Potassium 100 MG Oral Tablet (Cozaar)Indication s:HTN, goal below 140/90 Take 1 Tablet by mouth in the morning. 90 Tablet 1 05/31/2024 Active Amoxicillin-Pot Clavulanate 875-125 MG Oral Tablet (Augmentin)Indicat ions:Acute non-recurrent frontal sinusitis Take 1 Tablet by mouth in the morning and 1 Tablet before bedtime. Do all this for 10 days. 20 Tablet 05/31/2024 06/10/2024 Active predniSONE 20 MG Oral Tablet (Deltasone)Indicat ions:Acute non-recurrent frontal sinusitis two pills daily with food for 5 days, then one daily with food 15 Tablet 05/31/2024 06/10/2024 Active Losartan Potassium 100 MG Oral Tablet (Cozaar)Indication s:HTN, goal below 140/90 Take 1 Tablet by mouth in the morning. 30 Tablet 04/15/2024 05/31/2024 Discontinued (Refill) Amoxicillin-Pot Clavulanate 875-125 MG Oral Tablet (Augmentin) Take 1 Tablet by mouth in the morning and 1 Tablet before bedtime. Do all this for 7 days. 14 Tablet 05/17/2024 05/31/2024 Discontinued (Patient preference/d iscontinuati on) dexAMETHasone 4 MG Oral Tablet (Decadron) Take 1 Tablet by mouth once for 1 dose. 1 Tablet 05/17/2024 05/31/2024 Discontinued (Patient preference/d iscontinuati on) documented as of this encounter (statuses as of 05/31/2024) Active Problems Problem Noted Date Diagnosed Date Prediabetes 05/24/2024 Overview: Per Prediabetes protocol Metabolic syndrome 05/19/2024 Overview: 6.0/126 HTN, goal below 140/90 04/23/2022 Sinus tachycardia 04/23/2022 ADVANCE DIRECTIVE INFORMATION 02/20/2006 Overview: No, Advance Directive brochure offered , patient declined. GENERALIZED ANXIETY DIS 09/08/2003 documented as of this encounter (statuses as of 05/31/2024) Resolved Problems Problem Noted Date Diagnosed Date Resolved Date BENIGN THALIA SKIN EAR 10/12/2003 02/08/20 14 documented as of this encounter (statuses as of 05/31/2024) Immunizations Name Administration Dates Next Due Pneumococcal [...] Sign Reading Time Taken Comments Blood Pressure 124/78 05/31/2024 3:59 PM EDT Pulse 60 05/31/2024 3:59 PM EDT Temperature 36.3 C (97.3 F) 05/31/2024 3:59 PM ED T Respiratory Rate 16 05/31/2024 3:59 PM EDT Oxygen Saturation - - Inhaled Oxygen Concentration - - Weight 114.8 kg (253 lb) 05/31/2024 3:59 PM EDT Height - - Body Mass Index 37.36 05/17/2024 2:00 PM EDT documented in this encounter Progress Notes * Mo Pratt MD - 05/31/2024 4:04 PM EDT Austin was treated with Augmentin on 05/17 for sinus and ear effusion. Sx improved but are coming back. I think he just got a single dexamethasone dose which he says did help a lot the first day. We hada discussion over the new diagnosis of metabolic syndrome and diet and exercise and med options. Patient Active Problem List Diagnosis GENERALIZED ANXIETY DIS ADVANCE DIRECTIVE INFORMATION HTN, goal below 140/90 Sinus tachycardia Metabolic syndrome Prediabetes Past Medical History: Diagnosis Date Acute bronchitis, antibiotics not indicated 01/04/1975 Admitted [facility] for 8 days Cervicalgia 12/23/1985 ER hurt neck in wrestling class, C-spine normal Fracture of ankle, closed 05/18/1988 trimalleolar fracture right ankle Generalized anxiety disorder 09/08/2003 Buspar started Metabolic syndrome 05/19/2024 6.0/126 Pneumonia, organism unspecified(486) 04/21/78-04/28/78 PSG Strep sore throat 08/31/2004 treated with penicillin Past Surgical History: Procedure Laterality Date MEDIAL MALLEOLUS FX, REPAIR 05/18/88 right ankle fracture fixated. VASECTOMY 1998 PAH XR FOOT 3 OR MORE VIEWS 05/28/01 negative left foot xray, [place] Review of patient's allergies indicates: No Known Allergies Social History Socioeconomic History Marital status: Spouse name: Not on file Number of children: 3 Years of education: Not on file Highest education level: Not on file Occupational History Not on file Tobacco Use Smoking status: Former Types: Cigarettes Smokeless tobacco: Current Types: Snuff Tobacco comments: quit smoking, chews snuff Vaping Use Vaping status: Never Used Substance and Sexual Activity Alcohol use: Yes Comment: on weekends Drug use: Not on file Sexual activity: Yes Partners: Female control/protection: Surgical Other Topics Concern Not on file Social History Narrative Not on file Social Determinants of Health Financial Resource Strain: Not on file Food Insecurity: Not on file Transportation Needs: Not on file Social Connections: Unknown (05/31/2024) Social Connections How often do you feel lonely or isolated from those around you? (Adult - for ages 18 years and over): Not on file Housing Stability: Not on file Current Outpatient Medications Medication Sig Dispense Refill Aspirin EC 81 MG Oral Tablet Delayed Release Take by mouth 1 Tablet in the morning. Losartan Potassium 100 MG Oral Tablet (Cozaar) Take 1 Tablet by mouth in the morning. 30 Tablet 0 No current facility-administered medications for this visit. Lab Results Component Value Date/Time HEMOGLOBIN A1C - [facility] 6.0 (H) 05/19/2024 03:21 PM HEMOGLOBIN A1C - [facility] 5.5 01/28/2022 08:06 AM Results for orders placed or performed in visit on 01/21/22 LIPID PANEL WITH DIRECT LDL IF TG IS HIGH Result Value Ref Range Triglycerides 195 (H) <=174 mg/dL Cholesterol 183 <200 mg/dL HDL Cholesterol 48 >39 mg/dL Non-HDL Cholesterol 135 <=159 mg/dL LDL Cholesterol 96 <=129 mg/dL Results for orders placed or performed in visit on 05/17/24 BASIC METABOLIC PANEL Result Value Ref Range BUN 11 6 - 20 mg/dL Creatinine 1.0 0.6 - 1.2 mg/dL Estimated Glomerular Filtration Rate >90 >=60 mL/min Sodium 139 135 - 146 mmol/L Potassium 4.7 3.5 - 5.1 mmol/L Chloride 103 98 - 107 mmol/L CO2 23 22 - 32 mmol/L Anion Gap 13 7 - 15 mmol/L Glucose 198 (H) 70 - 120 mg/dL Calcium 9.5 8.4 - 10.2 mg/dL O: Blood pressure 124/78, pulse 60, temperature 36.3 C (97.3 F), resp. rate 16, weight 114.8 kg(253 lb). General appearance: well developed, well nourished and in no acute distress. Neck is supple without adenopathy or thyromegaly. Chest is symmetrical and moves normally. The lungs are clear without wheezes, rales, rhonchi or rubs, and the heart is regular without murmurs or gallops, or ectopy. PMI not displaced. PERRLA, EOMI. No scleral icterus. No facial assymmetry. TM's and canals normal. There is a normal gag reflex. Pt has normal teeth and no pharyngeal inflammation. The palate has no lesions and the uvula is normal. A: Acute non-recurrent frontal sinusitis (Primary) - Amoxicillin-Pot Clavulanate 875-125 MG Oral Tablet (Augmentin); Take 1 Tablet by mouth in the morning and 1 Tablet before bedtime. Do all this for 10 days. - predniSONE 20 MG Oral Tablet (Deltasone); two pills daily with food for 5 days, then one daily with food HTN, goal below 140/90 - Losartan Potassium 100 MG Oral Tablet (Cozaar); Take 1 Tablet by mouth in the morning. Metabolic syndrome - HEMOGLOBIN A1C; Future; Expected date: 05/31/2024 documented in this encounter Nursing Notes * Pricila Domínguez RN - 05/31/2024 3:59 PM EDT Right Ear pain and decreased hearing for a few week, getting headaches given antibiotics,started toimprove , but not getting bad again documented in this encounter Plan of Treatment Scheduled Orders Name Type Priority Associated Diagnoses Orde r Schedule HEMOGLOBIN A1C Lab Routine Metabolic syndrome Expected: 05/31/2024 (Approximate), Expires: 05/31/2025 Health Maintenance Due Date Last Done Comments [...] of this encounter Visit Diagnoses Diagnosis Acute non-recurrent frontal sinusitis- Primary HTN, goal below 140/90 Unspecified essential hypertension Metabolic syndrome Dysmetabolic Syndrome X documented in this encounter
--- OUTSIDE RECORDS SUMMARY | 2024-06-11 00:14 | External Medical Summary | Summary of Care ---
Author Name Unknown Organization [facility] Address [address] [facility] [place] [address] Phone [phone] Care Team Providers Care Title Abstractor Name Role Phone Unavailable Primary Care Provider Unavailabl e Encounter Details Date Type Department Care Team (Late st Contact Info) Description 05/18/2024 Orders Only Laboratory [address] [place] [phone] Kelly Ashley MD [address] [place] [address] [place] [address] Hyperglycemia* Allergies No known active allergiesdocumented as of this encounter (statuses as of 05/18/2024) Medications Medication Sig Dispensed Refills Start Date [...] as of this encounter (statuses as of 05/18/2024) Active Problems Problem Noted Date Diagnosed Date HTN, goal below 140/90 04/23/2022 Sinus tachycardia 04/23/2022 ADVANCE DIRECTIVE INFORMATION 02/20/2006 Overview: No, Advance Directive brochure offered , patient declined. GENERALIZED ANXIETY DIS 09/08/2003 documented as of this encounter (statuses as of 05/18/2024) Resolved Problems Problem Noted Date Diagnosed Date Resolved Date BENIGN THALIA SKIN EAR 10/12/2003 02/08/20 14 documented as of this encounter (statuses as of 05/18/2024) Immunizations Name Administration Dates Next Due Pneumococcal [...] as of this encounter Plan of Treatment Upcoming Encounters Date Type Department Care Team (Late st Contact Info) Description 05/19/2024 3:30 PM EDT Laboratory Laboratory [address] [place] [phone] [place] [address] Scheduled Orders Name Type Priority Associated Diagnoses Orde r Schedule HEMOGLOBIN A1C Lab Routine Hyperglycemia Expected: 05/18/2024 (Approximate), Expires: 05/18/2025 Health Maintenance Due Date Last Done Comments Cologuard 2016 Colonoscopy 2016 Fecal Occult Blood Test 2016 Sigmoidoscopy 2016 Depression Screening 12/03/2017 12/03/2016 Albumin/Creatinine Ratio 05/18/2024 Pos tponed from 1989 (Other) Colorectal Cancer Screening 05/18/2024 Postponed from 2016 (Other) Zoster Vaccines (1 of 2) 05/18/2024 Pos tponed from 2021 (Other) Influenza Vaccine (FLU shot) (#1) 2024 10/17/2016, 08/12/2014, 11/01/2013, Additional history exists GFR 05/17/2025 05/17/2024, 05/0 04/2022, 02/19/2022, Additional history exists Lipid Panel 01/21/2027 01/21/2022, /2 03/2013, 10/12/2003 Diabetes Screening 05/17/2027 05/17/2024, 0 [...] as of this encounter Visit Diagnoses Diagnosis Hyperglycemia- Primary Other abnormal glucose documented in this encounter
--- OUTSIDE RECORDS SUMMARY | 2024-06-11 00:14 | External Medical Summary | Summary of Care ---
Author Name Unknown Organization [facility] [address] [facility] [facility] [address] Phone [phone] Care Team Providers Care Client Support Associate Name Role Phone Unavailable Primary Care Provider Unavailabl e Reason for Visit * Reason Onset Date Comments Advice 05/27/2024 Encounter Details Date Type Department Care Team (Late st Contact Info) Description 05/27/2024 Telephone Family Medicine [address] [phone] Kelly Ashley MD [address] [place] [address] [place] [id number] Advice Allergies No known active allergiesdocumented as of this encounter (statuses as of 05/31/2024) Medications Medication Sig Dispensed Refills Start Date End Date Status Aspirin EC 81 MG Oral Tablet Delayed Release Take by mouth 1 Tablet in the morning. 02/04/2022 Active Losartan Potassium 100 MG Oral Tablet (Cozaar)Indications:H TN, goal below 140/90 Take 1 Tablet by [...] encounter Miscellaneous Notes * Telephone Encounter - Pricila Domínguez RN - 05/31/2024 9:53 AM EDT appt given * Telephone Encounter - Asiya Cuevas OSA - 05/27/2024 3:44 PM EDT No Appointments Available Patient declined appointments?: No What Visit Type is needed? Acute If Acute Visit Type is needed, were surrounding clinics offered to patient (Yes/No)? Yes Was patient offered appointments with other available providers (Yes/No)? Yes See Call Details? (Yes or No): Yes documented in this encounter Plan of Treatment Upcoming Encounters Date Type Department Care Team (Late st Contact Info) Description 05/31/2024 4:00 PM EDT Office Visit Family Medicine [address] [place] [phone] Mo Pratt MD [address] [place] [address] [place] [address] Health Maintenance Due Date Last Done Comments [...]
--- OUTSIDE RECORDS SUMMARY | 2024-06-11 00:14 | External Medical Summary | Summary of Care ---
Author Name Unknown Organization [facility] [address] [facility] [address] Phone [phone] Care Team Providers Care Site Interpreter Name Role Phone Unavailable Primary Care Provider Unavailabl e Reason for Visit * Reason Comments Outpatient Testing Encounter Details Date Type Department Care Team (Late st Contact Info) Description 05/17/2024 12:00 PM EDT Laboratory Laboratory [address] [place] [phone] [address] [place] [address] HTN, goal below 140/90 Allergies No known [...] 2:00 PM EDT Office Visit Family Practice [facility] [address] [place] [address] Octaviano Hoff MD [address] [place] [address] Pending Results Name Type Priority Associated Diagnoses Date /Time BASIC METABOLIC PANEL Lab Routine HTN, goal below 140/90 05/17/2024 11:49 AM EDT Health Maintenance Due Date Last Done [...] ( season) 2023 Influenza Vaccine (FLU shot) (#1) 2024 10/17/2016, 08/12/2014, 11/01/2013, Additional history exists Diabetes Screening 03/22/2025 03/22/2022, 0 02/19/2022, 01/28/2022, Additional history exists Lipid Panel 01/21/2027 01/21/2022, 12/19, 10/12/2003 DTaP,Tdap,and [...] as of this encounter Visit Diagnoses Diagnosis HTN, goal below 140/90 Unspecified essential hypertension documented in this encounter
--- OUTSIDE RECORDS SUMMARY | 2024-06-11 00:14 | External Medical Summary ---
Author Name Unknown Address Unknown Organization [id number]:[facility]ATORY [facility] [place] - [address] [facility] [address] Laboratory Report Ordering Provider Test Date Status JAXON WOOD 05/19/2024 15:21:33 Final Observation Date Value Abnormality Reference (Units ) Status HbA1C 05/19/2024 15:21:33 6.0 Above high normal 4. 0-5.6 (%) Final The use of HbA1c to monitor glycemic status is based on normal hemoglobin and HbA composition. This test should not be used in patients with abnormal hemoglobin that affects the half life of the red blood cell or the in vivo glycation rates. Glucose, estimated average 05/19/2024 15:21:33 126 Above high normal <126 (mg/dL) Simon palm Performing Location [facility] - [address] [facility] [address]
--- OUTSIDE RECORDS SUMMARY | 2024-06-11 00:14 | External Medical Summary ---
Author Name Unknown Address Unknown Organization [id number]:[facility] [place] - [address] [place] [address] Laboratory Report Ordering Provider Test Date Status JAXON WOOD 05/17/2024 11:49:55 Final Observation Date Value Abnormality Reference (Units ) Status BUN 05/17/2024 11:49:55 11 6-20 (mg/dL) Final Creatinine 05/17/2024 11:49:55 1.0 0.6-1.2 (mg/dL) Final Glomerular filtration rate/1.73 sq M.predicted [Volume Rate/Area] in Serum, Plasma or Blood by Creatinine-based formula (CKD-EPI) 05/17/2024 11:49:55 >90 >=60 (mL/min) Final eGFR is calculated based on the CKD-EPI 2020 equation Sodium 05/17/2024 11:49:55 139 135-146 (m mol/L) Final Potassium 05/17/2024 11:49:55 4.7 3.5-5.1 (m mol/L) Final Cl 05/17/2024 11:49:55 103 98-107 (mm ol/L) Final CO2 05/17/2024 11:49:55 23 22-32 (mmo l/L) Final Anion gap 05/17/2024 11:49:55 13 7-15 (mmol /L) Final Glucose 05/17/2024 11:49:55 198 Above high normal 70 -120 (mg/dL) Final Calcium 05/17/2024 11:49:55 9.5 8.4-10.2 ( mg/dL) Final Performing Location [facility] [place] - [address] [place] [address]
[2024-06-11 06:57] LABS: Hemoglobin 13.8 g/dl (14.0-18.0); Mean Corpuscular Hemoglobin 30.2 pg (25.0-34.0); Mean Corpuscular Hgb Conc 33.7 g/dL (32.0-36.0); Mean Corpuscular Volume 89.7 fL (80.0-100.0); Mean Platelet Volume 9.8 fL (9.4-12.4); Platelet Count 241 K/uL (130-400); RDW Coefficient of Variation 12.8 % (11.5-14.5); Red Blood Count 4.57 M/uL (4.70-6.10); White Blood Count 9.18 K/ul (4.8-10.8)
[2024-06-11 07:24] LABS: Albumin Globulin Ratio 1.5 (0.9-2); Albumin Level 3.7 gm/dl (3.4-5.0); BUN Creatinine Ratio 17.6 (10-20); Bilirubin,Total 0.7 mg/dl (0.2-1.0); Calcium 8.6 mg/dl (8.6-10.3); Chol HDL Ratio 3.4 (0-5); Creatinine Clr Calc Pharmacy 105.8 ml/min; Est GFR (African American) 97.5 ml/min; Est GFR (Non-African American) 84.1 ml/min; Globulin 2.5 gm/dl (2.5-4.0); Phosphorus 3.1 mg/dl (2.5-4.9); Potassium 4.1 mmol/L (3.5-5.1); Total Protein 6.2 gm/dl (6.0-8.3)
[2024-06-11] MEDS ORDERED: Nursing to Pharmacy Communication SCH (07:30)
[2024-06-11 07:48] LABS: Estimated Average Glucose 120 mg/dl; Hemoglobin A1C 5.8 % (4.5-5.6)
[2024-06-11] MEDS: FLUTICASONE PROPIONATE NA SPR 16 GM BTL SCH (07:49)
[2024-06-11] MEDS: LORATADINE 10 MG TAB PO SCH (07:49)
--- NOTE | 2024-06-11 08:37 | Cardiology Consultation ---
Date of Consultation June 11, 2024 Assessment & Plan (1) Supraventricular tachycardia: (2) Elevated troponin level: (3) Chest pain: (4) HTN (hypertension): Plan Patient admitted with sustained SVT, possibly lasting 12-24 hours prior to treatment. Unfortunately these EKG's/strips from Urgent care and EMS were sent to scanning and unable to be reviewed at this time personally. SVT ranging 170-190's per reports. Converted to NSR with IV adenosine. Elevated troponin on admission, consistent with demand ischemia in the setting of sustained SVT. Not indicative of ACS. Echo with normal LVEF, no wall motion abnormalities. Recommend transitioning Lopressor to metoprolol succinate 25 mg - 1 tab daily Reduce losartan to 25 mg daily (home dose 100 mg). BP has been borderline low at home per patient. Start ASA 81 mg daily Start statin - atorvastatin 20 mg daily. If patient remains in NSR, anticipate discharge later today. Plan for outpatient ZIO and possible exercise stress echo. Further recommendations pending evaluation and discussion with Dr. Garcia. Case discussed with Dr. Garcia I spent a total of 60 minutes on the date of service in preparation, delivery, and documentation of the care provided to this patient, excluding any time spent in the performance of separately billed services. Nahomy Perez PA-C Department of Cardiology, [facility] This chart was completed in part utilizing Speech Voice Recognition Software. Grammatical errors, random word insertions, pronoun errors, and incomplete sentences are an occasional consequence of this system due to software limitations, ambient noise, and hardware issues. Any formal questions or concerns about the content, text, or information contained within the body of this dictation should be directly addressed to the provider for clarification. Supervising Physician Co-Signing Physician Notes Attending attestation. I have personally performed a history and physical examination on the patient. I have reviewed the advance practitioner's documentation, and I agree with, and take responsibility for the plan of care. 53-year-old male admitted with symptomatic paroxysmal supraventricular tachycardia. Converted to sinus rhythm per reports, with adenosine. No recurrent SVT with initiation of beta-lin therapy. Blood pressure within acceptable range. Recommend titration of Toprol-XL 25 mg twice daily. Losartan reduced to 25 mg daily to avoid hypotension. Elevated troponin likely secondary to demand ischemia in setting of prolonged episode of supraventricular tachycardia. Recommended further risk stratification with stress testing as outpatient. Consider referral to electrophysiology pending clinical response to beta-lin therapy. Outpatient cardiology follow-up in 2 to 4 weeks. I spent a total of 30 minutes on the date of service in preparation, delivery, and documentation of the care provided to this patient, excluding any time spent in the performance of separately billed services. David Garcia DO, [facility] History of Present Illness Reason for Consultation: SVT; Elevated troponin; CP Requesting Physician: Toi Mcmillan Attending Physician: Dr. Garcia History of Present Illness Patient presenting to [facility] via EMS transfer from urgent care with complaints of chest pain and found to be in SVT History includes: 1. Hypertension 2. Borderline DM 3. Chronic tobacco abuse (chewing tob) 4. Chronic alochol use Recently treated for sinus infection with antibiotics/steroids for 5-7 days on 05/31/24. Previously evaluated by cardiology in 2021 for tachycardia. Initially thought to be atrial flutter but then confirmed to be sinus tach. No arrhythmias on outpatient ZIO. He was on metoprolol for a short time, but stopped He had an exercise stress echo in 2021 which was negative for inducible ischemia. Patient reports he noted intermittent chest tightness, dizziness on Friday evening. "did not feel right". Checked HR/BP at home and received "errors" on his machine. His pulse ox recorded his HR in the 190's. He went to bed and did not sleep well. The following morning () he called PCP office but could not get an appt. He went to urgent Care - [facility]. Found to be in SVT ranging 170-190s per report. Transferred to ER for evaluation. On route, he was treated with IV adenosine and apparently converted to NSR. Upon arrival to the ER, he was in NSR with RBBB pattern. HS troponin minimally elevated at 141 - peaking at 152 and trending downward this morning. Other labs unremarkable. He noted chest tightness during the arrhythmia, but now resolved. He was started on metoprolol tartrate 12.5 mg q 6 since admission. No recurrent arrhythmias noted since admission. Currently resting in bed, feeling well. Anxious for possible discharge later today. Allergies Allergy/AdvReac Type Severity Reaction Status Date / Time No Known Allergies Allergy Unverified 06/10/24 17:55 Home Medications Medication Instructions Recorded Confirmed Type amoxicillin 875 mg-potassium 1 tab PO BID 06/10/24 06/10/24 History clavulanate 125 mg tablet fluticasone propionate 50 1 spray intranasal DAILY 06/10/24 06/10/24 History mcg/actuation nasal spray,suspension losartan 100 mg tablet 100 mg PO QAM 06/10/24 06/10/24 History prednisone 20 mg tablet 20 mg PO DAILY 06/10/24 06/10/24 History Patient History Medical History ZARIA (generalized anxiety disorder) History of sinus tachycardia Metabolic syndrome Prediabetes HTN (hypertension) Social History Smoking Status: Never smoker Tobacco Type: Smokeless Tobacco (Dip or Chew) Do You Dip or Chew Tobacco: Yes; Tobacco Cessation Education Requested by Patient: No Hx Alcohol Use: Yes Alcohol type: beer Hx Substance Use: No Preferred Language: Lebanese Communication Ability: Effective Order Puller Required: No Beliefs That Will Affect Care: None Current Living Situation: Family Other Information That Helps Us Care for You: No Feels Safe at Home: Yes Safety Concerns: Feels Safe At This Time Assistive Devices: CPAP Review of Systems Review of Systems: All systems reviewed & are unremarkable except as noted in HPI & below Physical Exam Constitutional: WD/WN, vitals as above well developed; no acute distress Neck: + thick neck Respiratory: normal respiratory effort Auscultation: + diminished lung sounds; no crackles and no rales Cardiovascular: Rate/Rhythm: regular rate and regular rhythm Heart Sounds: no murmur Vessels: no JVD Extremities: no edema Gastrointestinal (Abdomen): normal bowel sounds, soft, nontender, no hepatosplenomegaly Skin: no rashes, warm and dry Neurologic: PERRL, EOMI, accommodation nl, no face palsy, no dysarthria Results & Data Vital Signs (Past 12 Hours) Vital Signs Temp Pulse Pulse Resp BP Pulse Ox O2 Del Method 06/11/24 08:24 36.9 C 87 18 131/82 98 Room Air 06/11/24 07:25 76 06/11/24 02:33 36.7 C 90 22 113/77 96 Room Air 06/10/24 22:58 87 06/10/24 22:30 36.7 C 88 20 101/69 97 Room Air Laboratory Results Cardiac Enzymes 06/10/24 06/10/24 06/10/24 Range/Units 13:40 16:04 20:04 AST 29 (13-39) U/L Troponin I High Sens 141.9 H* 152.2 H* 125.1 H* (0-20) pg/ml 06/10/24 06/11/24 Range/Units 22:54 06:32 AST 27 (13-39) U/L Troponin I High Sens 120.6 H* 88.8 H* D (0-20) pg/ml Coagulation 06/10/24 Range/Units 13:40 PT 10.6 (9.0-12.0) Seconds APTT 24 (21-31) Seconds Lipids 06/11/24 Range/Units 06:32 Triglycerides 172 H (0-150) mg/dl Cholesterol 148 (0-200) mg/dl HDL Cholesterol 44 mg/dl Cholesterol/HDL Ratio 3.4 (0-5) CBC 06/10/24 06/11/24 Range/Units 13:40 06:32 WBC 14.09 H 9.18 (4.8-10.8) K/ul RBC 4.90 4.57 L (4.70-6.10) M/uL Hgb 14.8 13.8 L (14.0-18.0) g/dl Hct 43.6 41.0 L (42.0-52.0) % Plt Count 304 241 (130-400) K/uL Neut # (Auto) 9.64 H (1.40-6.50) K/uL Lymph # (Auto) 2.89 (1.20-3.40) K/uL [place] # (Auto) 1.16 H (0.11-0.59) K/uL Eos # (Auto) 0.27 (0.00-0.50) K/uL Baso # (Auto) 0.05 (0.00-0.20) K/uL Comprehensive Metabolic Panel 06/10/24 06/11/24 Range/Units 13:40 06:32 Sodium 139 139 (136-145) mmol/L Potassium 3.8 4.1 (3.5-5.1) mmol/L Chloride 106 106 (98-107) mmol/L Carbon Dioxide 26 29 (21-32) mmol/L BUN 27 H 18 (6-23) mg/dl Creatinine 1.18 1.02 (0.6-1.4) mg/dl Glucose 107 H 116 H (70-99(Fasting)) mg/dl Calcium 9.1 8.6 (8.6-10.3) mg/dl AST 29 27 (13-39) U/L ALT 55 H 49 (7-52) U/L Alkaline Phosphatase 75 67 (34-104) U/L Total Protein 6.9 6.2 (6.0-8.3) gm/dl Albumin 4.1 3.7 (3.4-5.0) gm/dl Intake and Output 06/10/24 06/11/24 06/11/24 22:59 06:59 14:59 Other: Weight 114.759 kg Weight Measurement Method Standing Scale Diagnostic Findings Telemetry reviewed: Currently NSR EKG reviewed from admission: NSR, RAD, incomplete RBBB Compared with prior outside EKG, incomplete RBBB has replaced RBBB. Echocardiogram report reviewed 06/11/24: LVEF 55-60% LV wall motion is normal No significant valvular disease. Prior outside data reviewed: Exercise stress echo in March 2022: The stress echo is negative for inducible ischemia. The examination is adequate to evaluate the referral indication. The qualitative LV ejection fraction is 55-59% (normal). The LV wall thickness is mildly increased (concentric). The left ventricular wall motion is normal. The left ventricular ejection fraction increases normally with stress. The left ventricular diastolic function is mildly abnormal (grade I). The exercise echocardiographic examination is normal without resting left ventricular wall motion abnormalities or inducible ischemia. ZIO monitor in January 2022: CONCLUSIONS: a Zio patch XT monitor was worn for 12 days and 7 hours ranging from 02/04/2022 until 02/16/2022 for the evaluation of palpitations. Patient had a min HR of 50 bpm, max HR of 158 bpm, and avg HR of 92 bpm. Predominant underlying rhythm was Sinus Rhythm. Isolated SVEs were rare (<1.0%), and no SVE Couplets or SVE Triplets were present. Isolated VEs were rare (<1.0%), VE Couplets were rare (<1.0%), and no VE Triplets were present. A single patient triggered event correlated with sinus tachycardia 105 beats per minute with noted artifact limiting the diagnostic yield of this rhythm strip. Refer to rhythm strips available for review under the MUSE link for additional detail . Medications Administered Current Inpatient Medications Acetaminophen (Acetaminophen 325 Mg Tab) 650 mg PO Q4H PRN PRN Reason: pain/fever Stop: 07/10/24 18:56 Enoxaparin Sodium (Enoxaparin Inj 40 Mg/0.4 Ml Syr) 40 mg SQ Q24H BREANNA Stop: 07/10/24 19:14 Last Admin: 06/10/24 20:47 Dose: 40 mg Fluticasone Propionate (Fluticasone Propionate Na Spr 16 Gm Btl) 1 sprays NA DAILY BREANNA Stop: 07/11/24 08:59 Last Admin: 06/11/24 07:49 Dose: 1 sprays Lorazepam 1 mg/ Syringe 1 mls @ 2 mls/min IV ONE PRN; Protocol PRN Reason: EtoH Withdrawal AWSS 6-10 Loratadine (Loratadine 10 Mg Tab) 10 mg PO QAM [facility] Stop: 07/11/24 08:59 Last Admin: 06/11/24 07:49 Dose: 10 mg Metoprolol Succinate (Metoprolol Succ 25mg Ext Rel Tab) 25 mg PO QAM [facility] Stop: 07/11/24 10:59 Miscellaneous (Remove Nicoderm Patch) 1 each N/A DAILY@2058 [facility] Stop: 07/11/24 20:58 Nicotine (Nicotine 21 Mg/24 Hr Tdsy) 1 patch TD HS [facility] Stop: 07/10/24 21:14 Last Admin: 06/10/24 21:36 Dose: 1 patch Ondansetron HCl (Ondansetron Inj 2 Mg/Ml 2 Ml Vial) 4 mg IV Q6H PRN PRN Reason: Nausea Stop: 07/10/24 18:56 Polyethylene Glycol (Polyethylene (Miralax) 17 Gm Pack) 17 gm PO DAILY PRN PRN Reason: Constipation Stop: 07/10/24 18:56 (3) Chest pain Chest pain type: unspecified Qualified Code(s): R07.9 - Chest pain, unspecified
[2024-06-11] MEDS: LOSARTAN POTASSIUM 25 MG TAB PO SCH (12:33)
[2024-06-11] MEDS: METOPROLOL SUCC 25MG EXT REL TAB PO SCH ×2 (12:33→19:32)
[2024-06-11] MEDS: ASPIRIN 81 MG ECTAB PO SCH (12:33)
[2024-06-11] MEDS: ATORVASTATIN 20 MG TAB PO SCH (12:33)
--- NOTE | 2024-06-11 16:41 | Hospitalist Progress Note ---
Date of Service June 11, 2024 Assessment & Plan (1) Chest pain: (2) Elevated troponin level: (3) Supraventricular tachycardia: Plan 53y/o M with PMHx of metabolic syndrome, prediabetes, hypertension, sinus tachycardia, history of generalized anxiety disorder and other medical problems listed below who presents with chest pain and palpitations. Patient was seen at [facility] and was noted to be SVT. He was taken from there to here via ambulance and received adenosine en route. He was given aspirin at the urgent care but no nitroglycerin. Patient also received approximately 700mL of NSS en route to the ED. He is being managed for the following: Chest Pain, Palpitations Elevated Troponin Level/likely demand ischemia Supraventricular Tachycardia SVT noted outside facility. Administered adenosine en route to ED. Presenting EKG w/ no acute ischemic changes. Initial trop 141.9 upon presentation; downtrended. ECHO: EF 55-60%, no RWMA. Pt w/ no further chest pain or tightness or palpitations. Cardio on board, titrating metoprolol, losartan dose reduced. Likely will need EP eval, stress test as OP and cardo f/u in 2-4 weeks on dc. Monitor and replete electrolytes HTN: cardiac meds being optimized as above. BP wnl. Seasonal Allergies : no overt evidence of infection. c/w flonase and claritin prn. Daily Alcohol Use Tobacco Use Disorder Pt reports drinking ~2 beers after dinner every evening; He also uses chewing tobacco daily. Alcohol w/d at-risk protocol in place; Denies need for nicotine patch at this time. JAXON on CPAP: Ordered, can continue using CPAP HS. Prediabetes: a1c 5.8, f/u pcp for alf monitoring. a1c in 3 months. DVT Prophylaxis: SQ Lovenox Code Status: FULL CODE PCP: Katelyn Yan MD Admission and Anticipated Discharge Date Admission Date: June 10, 2024 Subjective Patient was seen and examined at bedside. Patient was lying in bed, on room air, NAD, resting comfortably. Patient reports feeling better, denies any shortness of breath or chest pain or tightness. Patient reports eating okay and moving bowels okay. Patient denies any recent febrile illness or flulike illness. Physical Exam Physical Exam: GENERAL: Alert and oriented x3. NAD, on RA. HEENT: No pallor, no icterus. Pupils equal, round and reactive to light. Oral mucosa moist. NECK: No JVD, no neck masses. HEART: S1 and S2 heard. Regular rate and rhythm. No murmur, no gallop. RESPIRATORY SYSTEM: Normal AP diameter. No accessory muscle use. No wheezing, no crackles. ABDOMEN: Soft, bowel sounds present, nontender, no distention. CENTRAL NERVOUS SYSTEM: No facial droop. Speech is clear. Obeys simple commands. Moves extremities. EXTREMITIES: No edema, no erythema seen. Results & Data Results & Data Vital Signs (Past 12 Hours) Vital Signs Temp Pulse Pulse Resp BP Pulse Ox O2 Del Method 06/11/24 15:57 36.7 C 92 H 18 120/60 98 Room Air 06/11/24 15:37 89 06/11/24 12:03 36.8 C 91 H 18 121/80 98 Room Air 06/11/24 08:24 36.9 C 87 18 131/82 98 Room Air 06/11/24 07:25 76 (1) Chest pain Chest pain type: unspecified Qualified Code(s): R07.9 - Chest pain, unspecified
[2024-06-12 07:44] LABS: Hematocrit (blood only) 45.6 % (42.0-52.0); Hemoglobin 15.3 g/dl (14.0-18.0); Mean Corpuscular Hemoglobin 29.9 pg (25.0-34.0); Mean Corpuscular Hgb Conc 33.6 g/dL (32.0-36.0); Mean Corpuscular Volume 89.1 fL (80.0-100.0); Mean Platelet Volume 9.7 fL (9.4-12.4); Platelet Count 260 K/uL (130-400); RDW Coefficient of Variation 12.3 % (11.5-14.5); RDW Standard Deviation 40.2 fL (36.4-46.3); Red Blood Count 5.12 M/uL (4.70-6.10); White Blood Count 8.97 K/ul (4.8-10.8)
[2024-06-12 08:05] LABS: BUN Creatinine Ratio 15.4 (10-20); Calcium 9.2 mg/dl (8.6-10.3); Creatinine Clr Calc Pharmacy 103.8 ml/min; Est GFR (African American) 95.2 ml/min; Est GFR (Non-African American) 82.2 ml/min; Magnesium 2.2 mg/dl (1.7-2.4)
--- NOTE | 2024-06-12 10:55 | Discharge Summary ---
Date of Service June 12, 2024 Admission HPI Per Admitting Provider Austin Patel is a 53y/o M with PMHx of metabolic syndrome, prediabetes, hypertension, sinus tachycardia, history of generalized anxiety disorder and other medical problems listed below who presents with chest pain and pa lpitations. Was seen at [facility] earlier today and noted to be in SVT. Was brought by ambulance to our ED and adenosine was given en route. Was given aspirin at the urgent care as well, but no nitro. Patient states that his chest discomfort does feel improved. Patient started with chest tightness, palpitations and lightheadedness/dizziness yesterday around dinner time. He reports that he took his BP at home and noted that his HR was elevated. Denies any history of known heart or lung disease. Does have history of sinus tachycardia per chart review. He has been taking Augmentin and prednisone over the past week or so for an acute sinus infection. No family history of heart disease. He did not take his losartan this morning - he usually takes this medication in the afternoon. Patient also received 700mL of NSS en route. He does not smoke, but does endorse using chewing tobacco. No recreational drug use. He drinks approximately 2 beers after dinner every evening. He denies any SOB, abdominal pain, leg swelling or cough. Admission Exam Per Admitting Provider GENERAL APPEARANCE: AxOx4, generally well-appearing F no acute distress. HEENT: NC, AT. MMM. EOMI, clear conjunctiva, oropharynx clear. NECK: Supple without lymphadenopathy. No stiffness or restricted ROM. HEART: tachycardic and regular LUNGS: CTAB, moving air well. No crackles or wheezes are heard. ABDOMEN: Soft, nontender, nondistended with good bowel sounds heard. BACK: No CVAT, no obvious deformity. EXTREMITIES: Without cyanosis, clubbing or edema. NEUROLOGICAL: Grossly nonfocal. Alert and oriented, moving all 4 extremities. CN not formally tested but appear grossly intact. Observed to ambulate with normal gait. Skin: Warm and dry without any rash. Principal Diagnosis Chest pain, palpitation Supraventricular tachycardia Demand ischemia Discharge Exam GENERAL: Alert and oriented x3. NAD, on RA. HEENT: No pallor, no icterus. Pupils equal, round and reactive to light. Oral mucosa moist. NECK: No JVD, no neck masses. HEART: S1 and S2 heard. Regular rate and rhythm. No murmur, no gallop. RESPIRATORY SYSTEM: Normal AP diameter. No accessory muscle use. No wheezing, no crackles. ABDOMEN: Soft, bowel sounds present, nontender, no distention. CENTRAL NERVOUS SYSTEM: No facial droop. Speech is clear. Obeys simple commands. Moves extremities. EXTREMITIES: No edema, no erythema seen. Discharge Data Allergies Allergy/AdvReac Type Severity Reaction Status Date / Time No Known Allergies Allergy Unverified 06/10/24 17:55 Consultations 06/10/24 15:11 ED Decision to Admit Stat 06/10/24 16:04 Consult Cardiology Routine Hospital Course (1) Chest pain: (2) Elevated troponin level: (3) Supraventricular tachycardia: Plan 53y/o M with PMHx of metabolic syndrome, prediabetes, hypertension, sinus tachycardia, history of generalized anxiety disorder and other medical problems listed below who presents with chest pain and palpitations. Patient was seen at [facility] and was noted to be SVT. He was taken from there to here via ambulance and received adenosine en route. He was given aspirin at the urgent care but no nitroglycerin. Patient also received approximately 700mL of NSS en route to the ED. He was managed for the following: Chest Pain, Palpitations Elevated Troponin Level/likely demand ischemia Supraventricular Tachycardia SVT noted outside facility. Administered adenosine en route to ED. Presenting EKG w/ no acute ischemic changes. Initial trop 141.9 upon presentation; downtrended. ECHO: EF 55-60%, no RWMA. Pt w/ no further chest pain or tightness or palpitations. Cardio on board, titrated metoprolol, losartan dose reduced. Tele review w/ no arrythmia, d/w cardio - ok to dc from their POV. Likely will need EP eval, stress test as OP and cardo f/u in 2-4 weeks on dc. HTN: cardiac meds being optimized as above. BP wnl. Seasonal Allergies : no overt evidence of infection. c/w flonase and claritin prn. Daily Alcohol Use Tobacco Use Disorder Pt reports drinking ~2 beers after dinner every evening; He also uses chewing tobacco daily. recommended cessation of alcohol and tobacco use JAXON on CPAP: Ordered, can continue using CPAP HS. 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 a1c in 3 months. DVT Prophylaxis: SQ Lovenox Code Status: FULL CODE PCP: Katelyn Yan MD Patient is being discharged to home with following instruction at the point of discharge: Follow-up with your primary care physician within a week time and likely you will need labs CBC/CMP/magnesium/phosphorus. Follow-up with your cardiology in about 2 weeks time upon discharge, you will need further evaluation for outpatient stress test and need for EP evaluation. Your cardiac medications has been optimized, take them as prescribed. If you have any further chest pain or tightness or palpitation, report to emergency or your primary care office immediately. Highly recommend that you quit tobacco use and alcohol use. You have prediabetes [A1c of 5.8], continue to follow-up with your PCP for long- term monitoring. You will need A1c in about 3 months time, coordinate with your PCP office to set up the test. Take your medication as prescribed. Please make sure that you are able to get your medications today by calling your pharmacy before you leave the hospital so that your treatment continuity is not broken. Home Health Attestation I certify that this patient is under my care and that I, or a physicians environmental assistant working with me, had a face to-face encounter that meets the home health [id number] encounter requirements with this patient. The encounter with the patient was in whole, or in part, for the following medical condition, which is the primary reason for home health care (list medical condition): I certify that, based on my findings, the following services are medically necessary home health services: My clinical findings support the need for the above services because: Further, I certify that my clinical findings support that this patient is homebound (i.e. absences from home require considerable and taxing effort and are for medical reasons or adventist services or infrequently or of short duration when for other reasons) because: Certification for Home Health Services: Based on the above findings, I certify that this patient is confined to the home and needs intermittent halfway care, physical therapy and/or speech therapy or continues to need occupational therapy. The patient is under my care, and I have initiated the establishment of the plan of care. This patient will be followed by a physician who will periodically review the plan of care. Total Time Total Time Spent Total Time Spent (In Minutes): 45 Discharge Plan Discharge Items Patient Disposition: Home - Self-Care Reason For Visit: CHEST PAIN, SVT S/P ADENOSINE Discharge Diagnosis: Chest pain, palpitation Supraventricular tachycardia Demand ischemia Activity: Resume your previous activity Non-emergency contact: Primary Care Provider Call non-emergency contact if: you have any medication questions Follow-up/Referrals: Katelyn Yan MD [Primary Care Provider] - Diet: Heart Healthy Addtl Attending Provider Instructions: Follow-up with your primary care physician within a week time and likely you will need labs CBC/CMP/magnesium/phosphorus. Follow-up with your cardiology in about 2 weeks time upon discharge, you will need further evaluation for outpatient stress test and need for EP evaluation. Your cardiac medications has been optimized, take them as prescribed. If you have any further chest pain or tightness or palpitation, report to emergency or your primary care office immediately. Highly recommend that you quit tobacco use and alcohol use. You have prediabetes [A1c of 5.8], continue to follow-up with your PCP for long- term monitoring. You will need A1c in about 3 months time, coordinate with your PCP office to set up the test. Take your medication as prescribed. Please make sure that you are able to get your medications today by calling your pharmacy before you leave the hospital so that your treatment continuity is not broken. Pending Studies at Discharge: No Stand-Alone Forms: My [facility] [employer], Smoking Cessation Medications and NC Order Prescriptions: New loratadine [Wal-itin] 10 mg Tablet 10 mg PO DAILY PRN (Reason: allergic symptoms) Qty: 30 0RF nicotine [Nicoderm CQ] 21 mg/24 hr Patch 24 Hour 1 patch transdermal HS Qty: 28 0RF atorvastatin 20 mg Tablet 20 mg PO QAM Qty: 30 0RF losartan 25 mg Tablet 25 mg PO QAM Qty: 30 0RF metoprolol succinate 25 mg Tablet Extended Release 24 Hr 25 mg PO BID Qty: 60 0RF aspirin 81 mg Tablet,Delayed Release (Dr/Ec) 81 mg PO QAM Qty: 30 0RF Continued prednisone 20 mg tablet 20 mg PO DAILY Rx Instructions: Two pills daily with food for 5 days, then 1 daily with food. Patient was on his last dose today. fluticasone propionate 50 mcg/actuation spray,suspension 1 spray INTRANASAL DAILY Discontinued losartan 100 mg tablet 100 mg PO QAM amoxicillin-pot clavulanate 875-125 mg tablet 1 tab PO BID Rx Instructions: Patient was on his last day (06/10). Discharge Orders: Discharge Order (Routine); Ordered 06/12/24 Ordered By: Bibiana Coyle Admission Data Admit Date/Time: 06/10/24 16:08 Attending Provider: Bibiana Coyle Admit Provider: Ange Gilbert Primary Care Provider: Katelyn Yan Other Providers: Ange Gilbert; David Garcia
== END 2024-06-12 12:00 | disposition home or self-care (01) | DRG 309 ==
LOC: ED 13:31 → 2W 16:08 → SUATTDRO 16:08 → 2W 18:00 → 2S 19:14